=== PATIENT | female | born 1945 | race Caucasian/White ===

== ENCOUNTER → 2016-05-04 | Outpatient (CLI) | payer OTHER, MEDICARE | LOC: MMPC 11:11 | DX: K21.9 Gastro-esophageal reflux disease without esophagitis (principal); R05 Cough; N95.2 Postmenopausal atrophic vaginitis; E78.5 Hyperlipidemia, unspecified; M81.0 Age-related osteoporosis without current pathological fracture; I10 Essential (primary) hypertension | CPT/HCPCS: 99213; G0463 ==

== ENCOUNTER → 2016-08-19 | Outpatient (CLI) | payer OTHER, MEDICARE ==
[2016-08-19 10:27] LABS: HEMOGLOBIN A1C 5.46 % (4.2-6.0)
== END ==
LOC: MOB LAB 09:34
DX: R53.83 Other fatigue (principal); R63.5 Abnormal weight gain; Z83.3 Family history of diabetes mellitus
CPT/HCPCS: 83036; 99213

== ENCOUNTER → 2016-08-21 | Outpatient (CLI) | payer OTHER, MEDICARE ==
--- NOTE | 2016-08-22 12:23 | DI ---
LUMBAR SPINE SERIES, 08/21/2016 10:41 AM: The Clinical History: Left-sided low back pain without sciatica. Previous Exam: None at this facility. 3 routine upright views are submitted. The vertebral bodies are of normal height and size. There is m ild to moderate disc space narrowing at L4-5 and there is a grade 1 spondylolisthesis at this level. The remaining disc spaces are of normal height. Arthritic changes are present in the lumbar apophysea l joints between L3-4 and L5-S1 bilaterally. The pedicles and both SI joints are normal. Readin. Mild to moderate disc space narrowing at L4-5 with a grade 1 spondylolisthesis. 2. Arthritic changes are present in the lower apophyseal joints bilaterally between L3-4 and L5-S1.
--- NOTE | 2016-08-22 12:25 | DI ---
LEFT KNEE, 08/21/2016 10:41 AM: Clinical History: Left knee pain. Previous Exam: 04/23/2014. 4 views are submitted. The AP and tunnel projections are weight bearing views. There is no acute soft tissue, osseous, or joint abnormality. There is moderately severe narrowing of the medial compartmen t secondary to degenerative arthritic change. When compared to the previous exam, there has been marya le interval change. Reading: Moderate degenerative arthritis of the medial compartment of the left knee.
== END ==
LOC: ORTHO 11:56
PROVIDERS: ATTEND Orthopaedic Surgery
DX: M25.562 Pain in left knee (principal); M54.5 Low back pain; M43.16 Spondylolisthesis, lumbar region; M17.12 Unilateral primary osteoarthritis, left knee
CPT/HCPCS: 72100; 73564

== ENCOUNTER → 2016-08-27 | Outpatient (CLI) | payer OTHER, MEDICARE | LOC: MMPC 11:11 | PROVIDERS: ATTEND Surgery | DX: K21.9 Gastro-esophageal reflux disease without esophagitis (principal); R05 Cough | CPT/HCPCS: 99202; G0463 ==

== ENCOUNTER → 2016-08-28 | Outpatient (CLI) | payer OTHER, MEDICARE ==
--- NOTE | 2016-08-28 15:43 | DI ---
MRI LUMBAR SPINE W/O CN,08/28/2016 9:48 AM: Clinical History: Spondylolisthesis of the lumbar region. Previous Exam: October 12, 2012 Findings: Multiplanar MR images are obtained through the lumbar spine without contrast, and demonstrate anatomi c alignment without fractures. There are multiple intraosseous lipomas noted. The spinal cord descends normally with a normal conus at the L1 level. There is no evidence of spondylolysis. There is grade 1 anterolisthesis of L4 on L5. The major vascular flow voids are unremarkable. Visualized portions of the kidneys demonstrate a larg e right simple renal cyst measuring 2.5 cm in length. Individual intervertebral disc spaces: L1/2: No significant stenosis. L2/3: There is disc desiccation and a small annular fissure with a broad-based disc bulge contributin g to mild bilateral neural foraminal narrowing. L3/4: Disc desiccation, annular fissuring and a broad-based disc bulge with some facet and ligamentum flavum hypertrophy without significant stenosis. L4/5: There is grade 1 anterolisthesis at this level. There is disc desiccation and annular fissuring with a small broad-based disc bulge. There is a stable left-sided 6.5 mm synovial cyst at this level . Facet and ligamentum flavum hypertrophy is also noted, but there is no significant stenosis. L5/S1: Small broad-based disc bulge without significant stenosis. Impression: No significant change from prior exam.
== END ==
LOC: MRI 09:40
PROVIDERS: ATTEND Orthopaedic Surgery
DX: M43.16 Spondylolisthesis, lumbar region (principal); M51.16 Intervertebral disc disorders with radiculopathy, lumbar region
CPT/HCPCS: 72148

== ENCOUNTER → 2016-09-03 | Outpatient (CLI) | payer OTHER, MEDICARE | LOC: SLEEP LAB 19:51 | DX: G47.33 Obstructive sleep apnea (adult) (pediatric) (principal); G47.34 Idiopathic sleep related nonobstructive alveolar hypoventilation | CPT/HCPCS: 95811 ==

== ENCOUNTER 2016-09-09 07:52 | Day surgery (SDC) | payer OTHER, MEDICARE ==
[~2016-09-09 07:52] MED LIST: LIDOCAINE 2% VISCOUS(20 MG/1 ML) - 15 ML UD CUP PO ONE; LIDOCAINE HCL/PF 2% (20 MG/ML) - 5 ML SYRINGE ONE; Lactated Ringers 1,000 ML PRIMARY IV ONE; MIDAZOLAM 5 MG/1 ML ONE; fentaNYL Inj 100 MCG/2 ML VIAL ONE
[2016-09-09] MEDS: LIDOCAINE W/ SODIUM BICARB 0.5 ML SYR ONE (08:24)
--- NOTE | 2016-09-09 09:05 | GEN.OPNOTE ---
EGD / Colonoscopy Report Surgery Date: 09/09/16 Preoperative Diagnosis: Chronic esophageal reflux disease. Colon cancer screening Postoperative Diagnosis: Gastric polyps. Hiatal hernia. Screening for colon cancer. Diverticulosis of the sigmoid colon Procedure: Colonoscopy. EGD with biopsies Surgeon: Jose Francois MD Anesthesia Provider: Ruben Mcadams CRNA Anesthesia Type: MAC Indications: Patient has chronic esophageal reflux disease. If she comes off her PPIs she gets pain. Patient needs a screening colonoscopy as a known history of diverticulosis EGD Findings: Esophagus: Olympus video EGD set scope inserted posterior pharynx. Guided into the esophagus under direct visualization. Patient esophagus. Be totally normal. GE Junction : Patient did have a hiatal hernia. GE junction at 35 cm Fundus : Scope retroflexed on itself revealing hiatal hernia Body : On the greater curvature the stomach there is 2 sessile polyps removed with snare polypectomy. I believe these are gone be inflammatory polyps Prepyloric : Prepyloric area was within normal limits also masses or tumors Small Intestine : First second third portion of duodenum within normal limits A lubricated flexible upper endoscope was inserted and passed through the esophagus and stomach into the duodenum. Colonoscopy Findings: Prep : Excellent Cecum : Cecum is been surgically removed Ascending : Portion of ascending colon that was left was within normal limits Transverse : Transverse colon had no polyps tumors or cancers sigmoid : Descending sigmoid colon free from disease patient had wid[place] extensive diverticulosis of the sigmoid colon Rectum : Rectum is within normal limits no masses tumors or ulcers Digital Rectal Exam : A lubricated flexible colonoscope was inserted and passed to the blind end of the cecum.
[2016-09-09 10:24] VITALS: TEMP 97.3
[2016-09-09 10:25] VITALS: RESP 16
== END 2016-09-09 10:00 | disposition home or self-care (01) ==
LOC: SDSC 07:52
PROVIDERS: ATTEND Surgery
DX: Z12.11 Encounter for screening for malignant neoplasm of colon (principal); K21.9 Gastro-esophageal reflux disease without esophagitis; K31.7 Polyp of stomach and duodenum; K44.9 Diaphragmatic hernia without obstruction or gangrene; K57.90 Diverticulosis of intestine, part unspecified, without perforation or abscess without bleeding
CPT/HCPCS: 00810; 43239 ×2; 45378 ×2; J2704; J3010; 88305; J2001; J2250; J7120

== ENCOUNTER → 2016-09-24 | Outpatient (CLI) | payer OTHER, MEDICARE ==
--- NOTE | 2016-09-24 14:46 | DI ---
AP PELVIS and LEFT HIP, 09/24/2016 2:25 PM: Clinical History: Left hip pain. Previous Exam: None at this facility. There is no soft tissue abnormality. The bony structures of the pelvis are normal. 2 views of the lef t hip show what may represent a dysplastic "bump". There is no bony acetabular over coverage. The brandyn nt space is intact. Similar findings are present on the right side. Readin. There may be a dysplastic "bump" suggesting femoroacetabular impingement. 2. The AP pelvis view is unremarkable.
== END ==
LOC: ORTHO 14:39
PROVIDERS: ATTEND Orthopaedic Surgery
DX: M25.552 Pain in left hip (principal)
CPT/HCPCS: 73502

== ENCOUNTER → 2016-10-06 | Outpatient (CLI) | payer OTHER, MEDICARE | LOC: MMPC 11:11 | PROVIDERS: ATTEND Surgery | DX: K31.7 Polyp of stomach and duodenum (principal) | CPT/HCPCS: 99212; G0463 ==

== ENCOUNTER → 2016-11-18 | Outpatient (CLI) | payer OTHER, MEDICARE ==
--- NOTE | 2016-11-18 11:42 | DI ---
US RETROPERITONEUM,11/18/2016 7:56 AM: Clinical History: Kidney cyst. Previous Exam: April 03, 2010 Findings: Multiple grayscale and color Doppler sonographic images are obtained through the retroperitoneum, and demonstrate mild renal cortical thinning. The right kidney also contains a 2.3 x 2.3 x 2.3 cm simple cyst. This has increased in size since com pared with the prior exam. Urinary bladder is unremarkable. Urinary bladder volume measures 157 cc. Both ureteral jets were identified. Impression: Interval increase in the size of a left kidney cyst now measuring 2.3 cm in diameter.
== END ==
LOC: US 07:50
PROVIDERS: ATTEND Physician Assistant
DX: N28.1 Cyst of kidney, acquired (principal)
CPT/HCPCS: 76770

== ENCOUNTER → 2016-11-20 | Outpatient (CLI) | payer OTHER, MEDICARE | LOC: MMPC 11:11 | DX: K21.9 Gastro-esophageal reflux disease without esophagitis (principal); N95.2 Postmenopausal atrophic vaginitis; E78.5 Hyperlipidemia, unspecified; N28.1 Cyst of kidney, acquired; M15.9 Polyosteoarthritis, unspecified; M81.0 Age-related osteoporosis without current pathological fracture; I10 Essential (primary) hypertension | CPT/HCPCS: 99213; G0463 ==

== ENCOUNTER 2019-04-24 11:03 | Inpatient (IN) ==
[2019-04-24] MEDS ORDERED: IPRATROPIUM/ALBUTEROL SULFATE 3 ML NEB NEB ONE ×2 (11:36→12:38)
[2019-04-24 12:20] LABS: BASOPHILS # (AUTO) 0.01 10*3/UL; BASOPHILS % (AUTO) 0.1 % (0-1); EOSINOPHILS # (AUTO) 0.01 10*3/UL; EOSINOPHILS % (AUTO) 0.1 % (0-8); Hematocrit [HCT] 41.4 % (37.0-47.0); Hemoglobin [HGB] 13.8 g/dL (12.0-16.0); LYMPHOCYTES # (AUTO) 3.84 10*3/uL; MEAN CORPUSCULAR HGB CONC 33.3 g/dL (33-37); MEAN CORPUSCULAR VOLUME 95.4 FL (81-99); MEAN PLATELET VOLUME 10.3 FL (7.4-12.2); MONOCYTES # (AUTO) 0.94 10*3/UL (0.3-0.8); NEUTROPHILS % (AUTO) 62.9 % (50-80); RED BLOOD COUNT 4.34 10^6/uL (4.20-5.40)
[2019-04-24 12:25] LABS: BUN/CREATININE RATIO 20.83 (6-20); SERUM ALBUMIN 3.9 g/dL (3.5-4.8)
[2019-04-24 12:27] LABS: PLATELET MORPHOLOGY COMMENT NORMAL MORPHOLOGY (NORM); RBC MORPHOLOGY COMMENT NORMAL MORPHOLOGY (NORM); WBC MORPHOLOGY COMMENT NORMAL MORPHOLOGY (NORM)
[2019-04-24] MEDS ORDERED: FUROSEMIDE 10 MG/1 ML - 2 ML VIAL IVP ONE (12:53)
[2019-04-24] MEDS ORDERED: ALBUTEROL SULFATE 2.5 MG/3 ML NEB ONE (13:28)
[2019-04-24] MEDS ORDERED: LIDOCAINE W/ SODIUM BICARB 0.5 ML SYR SUBD PRN (14:15)
[2019-04-24] MEDS ORDERED: ALBUTEROL SULFATE 8.5 GM HFA INHALER INH PRN (14:15)
[2019-04-24] MEDS ORDERED: ROSUVASTATIN CALCIUM 10 MG PO SCH (14:15)
[2019-04-24] MEDS ORDERED: SERTRALINE HCL 50 MG PO SCH (14:15)
[2019-04-24] MEDS ORDERED: predniSONE Tab 20 MG TAB PO SCH (14:15)
[2019-04-24] MEDS: IPRATROPIUM/ALBUTEROL SULFATE 3 ML NEB NEB SCH ×2 (15:51→18:42)
[2019-04-24] MEDS: Cefepime Inj 2 GM in Sodium Chloride 0.9% 100 ML IV SCH (16:07)
[2019-04-24] MEDS: metroNIDAZOLE 500mg (Premix) 500 MG/100 ML BAG IV SCH ×2 (16:55→23:28)
[2019-04-24] MEDS: methylPREDNISolone 40 MG/1 ML VIAL IVP SCH ×2 (16:56→21:40)
[2019-04-24] MEDS: ASCORBIC ACID Chewable 500 MG TABLET PO SCH (17:03)
[2019-04-24] MEDS: OMEPRAZOLE 40 MG CAPSULE PO SCH (17:04)
[2019-04-24] MEDS ORDERED: ATORVASTATIN 20 MG TABLET PO SCH (21:00)
[2019-04-24] MEDS: Montelukast Tab 10 MG TAB PO SCH (21:41)
[2019-04-25] MEDS: Cefepime Inj 2 GM in Sodium Chloride 0.9% 100 ML IV SCH ×2 (01:27→14:17)
[2019-04-25] MEDS: methylPREDNISolone 40 MG/1 ML VIAL IVP SCH ×2 (03:58→09:08)
[2019-04-25 04:58] LABS: BASOPHILS # (AUTO) 0.01 10*3/UL; BASOPHILS % (AUTO) 0.1 % (0-1); EOSINOPHILS # (AUTO) 0 10*3/UL; EOSINOPHILS % (AUTO) 0 % (0-8); Hematocrit [HCT] 40.6 % (37.0-47.0); Hemoglobin [HGB] 13.4 g/dL (12.0-16.0); LYMPHOCYTES # (AUTO) 0.64 10*3/uL; MEAN CORPUSCULAR VOLUME 95.1 FL (81-99); MONOCYTES # (AUTO) 0.05 10*3/UL (0.3-0.8); MONOCYTES % (AUTO) 0.7 % (5-15); NEUTROPHILS # (AUTO) 6.64 10*3/UL; NEUTROPHILS % (AUTO) 89.5 % (50-80); RED BLOOD COUNT 4.27 10^6/uL (4.20-5.40)
[2019-04-25 04:59] LABS: PLATELET MORPHOLOGY COMMENT NORMAL MORPHOLOGY (NORM); RBC MORPHOLOGY COMMENT NORMAL MORPHOLOGY (NORM); WBC MORPHOLOGY COMMENT NORMAL MORPHOLOGY (NORM)
[2019-04-25 05:08] LABS: BUN/CREATININE RATIO 23.63 (6-20); SERUM ALBUMIN 3.8 g/dL (3.5-4.8)
[2019-04-25] MEDS: metroNIDAZOLE 500mg (Premix) 500 MG/100 ML BAG IV SCH ×3 (06:56→23:05)
[2019-04-25] MEDS: IPRATROPIUM/ALBUTEROL SULFATE 3 ML NEB NEB SCH ×4 (07:10→19:15)
[2019-04-25] MEDS: ASCORBIC ACID Chewable 500 MG TABLET PO SCH (09:07)
[2019-04-25] MEDS: OMEPRAZOLE 40 MG CAPSULE PO SCH (09:07)
[2019-04-25] MEDS: Montelukast Tab 10 MG TAB PO SCH (20:08)
[2019-04-26] MEDS: Cefepime Inj 2 GM in Sodium Chloride 0.9% 100 ML IV SCH (02:47)
[2019-04-26 04:53] LABS: BASOPHILS # (AUTO) 0 10*3/UL; BASOPHILS % (AUTO) 0 % (0-1); EOSINOPHILS # (AUTO) 0 10*3/UL; EOSINOPHILS % (AUTO) 0 % (0-8); Hematocrit [HCT] 37.5 % (37.0-47.0); Hemoglobin [HGB] 12.7 g/dL (12.0-16.0); LYMPHOCYTES # (AUTO) 1.22 10*3/uL; MEAN CORPUSCULAR HGB CONC 33.9 g/dL (33-37); MEAN CORPUSCULAR VOLUME 94.2 FL (81-99); MEAN PLATELET VOLUME 10.7 FL (7.4-12.2); MONOCYTES # (AUTO) 0.81 10*3/UL (0.3-0.8); MONOCYTES % (AUTO) 6.2 % (5-15); NEUTROPHILS # (AUTO) 10.73 10*3/UL; NEUTROPHILS % (AUTO) 82.7 % (50-80); RED BLOOD COUNT 3.98 10^6/uL (4.20-5.40)
[2019-04-26 04:55] LABS: PLATELET MORPHOLOGY COMMENT NORMAL MORPHOLOGY (NORM); RBC MORPHOLOGY COMMENT NORMAL MORPHOLOGY (NORM); WBC MORPHOLOGY COMMENT NORMAL MORPHOLOGY (NORM)
[2019-04-26] MEDS: IPRATROPIUM/ALBUTEROL SULFATE 3 ML NEB NEB SCH ×2 (07:17→11:46)
[2019-04-26] MEDS: metroNIDAZOLE 500mg (Premix) 500 MG/100 ML BAG IV SCH (07:43)
[2019-04-26] MEDS: ASCORBIC ACID Chewable 500 MG TABLET PO SCH (09:14)
[2019-04-26] MEDS: OMEPRAZOLE 40 MG CAPSULE PO SCH (09:14)
[2019-04-26 11:41] VITALS: BP 120/67; TEMP 97.1
[2019-04-26 11:47] VITALS: RESP 16
[2019-04-26 11:49] VITALS: O2SAT 100
== END 2019-04-26 13:14 | disposition home or self-care (01) | DRG 204 ==
LOC: ER 11:03 → MED/SURG 14:14
PROVIDERS: ADMIT Internal Medicine; ATTEND Internal Medicine